=== PATIENT | female | born 1995 | race Caucasian/White ===

== ENCOUNTER 2018-12-13 10:41 | Emergency (ER) | payer OTHER ==
[~2018-12-13] VITALS: Ht 175.3 cm; Wt 74.8 kg
[2018-12-13] MEDS ORDERED: VOLTAREN-XR100 MG PO (13:49)
[2018-12-13] MEDS ORDERED: ULTRACET PO (13:50)
== END 2018-12-13 14:08 | disposition home or self-care (01) ==
LOC: ER 10:41
DX: S82.65XA Nondisplaced fracture of lateral malleolus of left fibula, initial encounter for closed fracture (principal); S80.02XA Contusion of left knee, initial encounter; W18.39XA Other fall on same level, initial encounter; Y93.02 Activity, running; Y92.89 Other specified places as the place of occurrence of the external cause; Y99.8 Other external cause status